=== PATIENT | female | born 1980 | race Caucasian/White ===

== ENCOUNTER 2025-02-10 19:15 | Emergency (ER) | payer BC, OTHER ==
[~2025-02-10] VITALS: Ht 167.6 cm; Wt 86.2 kg
--- NOTE | 2025-02-10 19:31 | NUR ---
UA CUP PROVIDED
[2025-02-10 20:17] LABS: IMMATURE GRANULOCYTE ABSOLUTE 0.12 K/uL (0-1); NUCLEATED RED BLOOD CELLS 0.0 % (0.0-0.19); PLATELET COUNT (AUTO) 198 K/uL (130-400); RED BLOOD CELL COUNT(AUTO) 4.84 MIL/uL (4.00-5.50); RED CELL DISTRIBUTION WIDTH 13.2 % (11.0-15.5); WHITE BLOOD COUNT (AUTO) 9.9 K/uL (4.8-10.8)
[2025-02-10 20:22] LABS: APPEARANCE,URINE CLEAR (CLEAR); GLUCOSE, URINE (UA) NEGATIVE (NEGATIVE); LEUKOCYTE ESTERASE ,URINE NEGATIVE Leu/uL (NEGATIVE); NITRATE,URINE NEGATIVE (NEGATIVE)
[2025-02-10 20:25] LABS: ADD UA MICROSCOPIC NO; OCCULT BLOOD,URINE NEGATIVE (NEGATIVE)
[2025-02-10 20:27] LABS: CREATININE 0.6 mg/dL (0.5-1.0); GLOMERULAR FILTR. RATE CALC 113.0 mL/min (>90); GLUCOSE,RANDOM 84.0 mg/dL (70-105); SODIUM SERUM 138.0 mmol/L (136-145); UREA NITROGEN, BLOOD 11.0 mg/dL (7-18)
--- NOTE | 2025-02-10 20:47 | ERN ---
ED Note History of Present Illness Stated Complaint: ABD PAIN WITH NAUSEA Chief Complaint: Abdominal Pain Time Seen by MD: 19:42 Dictation: This is a 44-year-old female who presented to the emergency room complaining of upper abdominal pain associated with nausea that started today. As the day progressed it was getting worse so she came into the ER for further evaluation. She denied any vomitings diarrhea hematemesis or melena. No history of any fever chills or rigors. Temperature 96.9 pulse 72 respirations 18 blood pressure 125/81 with a pulse oximetry of 99% on room air Patient reports having a history of pancreatitis-patient stated that they did not know why she developed pancreatitis. She stated that she only drank occasionally socially. But she did indicate that her triglycerides are high Allergies: Coded Allergies: No Known Allergies (Unverified Allergy, Unknown, 02/10/25) Past Medical History Past Medical History: Pancreatitis Surgical History: Cholecystectomy, Family History: Negative Social History: Negative RN Note Reviewed/Agreed w/PFSH: Yes Review of System Dictation Constitutional: Negative for fever,chills, and weight loss Eyes: Negative for injury, pain,redness, and discharge ENT: Negative for injury,pain or swelling Cardiovascular: Negative for chest pain, palpitations, and edema Respiratory: Negative for shortness of breath, cough, and wheezing, Abdomen/GI: Positive for upper abdominal pain, nausea, denied vomiting, diarrhea, and constipation Back: Negative for injury and pain : Negative for injury, bleeding and discharge MS/Extremity: Negative for injury and deformity Skin: Negative for rash, and discoloration Neuro: Negative for headache, weakness, numbness, tingling, and seizure Psych: Negative for suicide ideation, homicidal ideation, and hallucinations Initial Vital Sign VS Vital Signs Date Time Temp Pulse Resp B/P (MAP) Pulse Ox O2 Delivery O2 Flow Rate FiO2 02/10/25 19:29 97.0 72 18 125/81 99 Room Air Physical Exam Dictation General: awake, alert, NAD Head/Face: Normocephalic, atraumatic Eyes: PERRL, EOMI, vision at baseline ENT: oral cavity clear, TMs clear, no signs of infection Neck: Trachea midline, supple, no nuchal rigidity Cardiovascular: RRR, normal S1/S2, No MRGs, no JVD Respiratory: CTAB, no respiratory distress, No rales or wheezes Abdomen: Soft, non-tender, non-distended, normal bowel sounds, no guarding or rebound. Skin: Warm, dry, normal turgor, no rash MS/Extremity: Pulses equal, no cyanosis, neurovascular intact, FROM Neuro: COAx4, GCS 15, strength 5/5, CN 2-12 intact, normal cerebellar exam, normal gait, Psych: Normal behavior, mood, and affect normal Extremities-trace edema without any palpable cords, Homans sign is negative Results (Laboratory/Radiology) Laboratory/Radiology Laboratory Tests Test 02/10/25 19:46 White Blood Count 9.9 K/uL (4.8-10.8) Red Blood Count 4.84 MIL/uL (4.00-5.50) Hemoglobin 13.9 g/dL (12.0-16.0) Hematocrit 41.9 % (36-48) Mean Corpuscular Volume 86.6 fL (79-99) Mean Corpuscular Hemoglobin 28.7 pg (27.0-33.0) Mean Corpuscular Hemoglobin Concent 33.2 g/dL (32.0-36.0) Red Cell Distribution Width 13.2 % (11.0-15.5) Platelet Count 198 K/uL (130-400) Mean Platelet Volume 12.8 fL (7.5-10.5) H Immature Granulocyte % (Auto) 1.2 % (0-1) H Neutrophils (%) (Auto) 58.1 % (40.0-77.0) Lymphocytes (%) (Auto) 30.1 % (21.0-51.0) Monocytes (%) (Auto) 8.8 % (3.0-13.0) Eosinophils (%) (Auto) 1.5 % (0.0-8.0) Basophils (%) (Auto) 0.3 % (0.0-5.0) Neutrophils # (Auto) 5.7 K/uL (1.8-7.7) Lymphocytes # (Auto) 3.0 K/uL (1.0-4.8) Monocytes # (Auto) 0.9 K/uL (0.1-1.0) Eosinophils # (Auto) 0.15 K/uL (0.00-0.70) Basophils # (Auto) 0.03 K/uL (0.00-0.20) Absolute Immature Granulocyte (auto 0.12 K/uL (0-1) Nucleated Red Blood Cells 0.0 % (0.0-0.19) Urine Color COLORLESS (YELLOW) Urine Appearance CLEAR (CLEAR) Urine pH 5.5 (5.0-8.0) Urine Specific Goldsmith 1.007 (1.001-1.031) Urine Protein NEGATIVE mg/dL (NEGATIVE) Urine Glucose (UA) NEGATIVE mg/dL (NEGATIVE) Urine Ketones NEGATIVE mg/dL (NEGATIVE) Urine Occult Blood NEGATIVE (NEGATIVE) Urine Nitrate NEGATIVE (NEGATIVE) Urine Bilirubin NEGATIVE mg/dL (NEGATIVE) Urine Urobilinogen 0.2 mg/dL (0.2-1.0) Urine Leukocyte Esterase NEGATIVE Rafa/uL Sodium Level 138 mmol/L (136-145) Potassium Level 3.7 mmol/L (3.5-5.1) Chloride Level 102 mmol/L (101-111) Carbon Dioxide Level 28 mmol/L (21-32) Blood Urea Nitrogen 11 mg/dL (7-18) Creatinine 0.6 mg/dL (0.5-1.0) Glomerular Filtration Rate Calc 113 mL/min (>90) Random Glucose 84 mg/dL (70-105) Total Calcium 9.1 mg/dL (8.5-10.1) Total Bilirubin 0.4 mg/dL (0.2-1.0) Direct Bilirubin 0.1 mg/dL (0.0-0.3) Aspartate Amino Transf (AST/SGOT) 15 U/L (10-37) Alanine Aminotransferase (ALT/SGPT) 30 U/L (12-78) Alkaline Phosphatase 118 U/L (50-136) Total Protein 7.7 g/dL (6.0-8.3) Albumin 3.7 g/dL (3.5-5.0) Lipase 110 U/L (16-77) H Labs Reviewed?: Yes ED Course ED Course Orders Procedure Category Date Status Time Vital Signs Per CPOE 02/10/25 Transmitted Routine 19:41 Saline Lock Iv CPOE 02/10/25 Transmitted 19:41 Cbc With Differential LAB 02/10/25 Complete 19:41 Lipase LAB 02/10/25 Complete 19:41 Urinalysis Profile LAB 02/10/25 Complete 19:41 Basic Metabolic Panel LAB 02/10/25 Complete 19:41 Hepatic Function Panel LAB 02/10/25 Complete 20:42 Urinalysis Profile LAB 02/10/25 Transmitted 20:41 Lactated Ringers PHA 02/10/25 Complete 1000ml (Lactated 21:00 Ondansetron 4mg Inj PHA 02/10/25 Complete (Zofran 4mg Inj) 21:00 Famotidine 20mg Vial PHA 02/10/25 Complete (Pepcid 20mg Vial) 21:00 Current Medications Medications (Trade) Dose Ordered Sig/Trisha Route PRN Reason Start Time Stop Time Status Last Admin Dose Admin Famotidine (Pepcid 20mg Vial) 20 mg ONCE ONCE IV 02/10/25 21:00 02/10/25 21:01 DC 02/10/25 21:01 Lactated Ringer's 1,000 ml @ 0 mls/hr ONCE ONCE IV 02/10/25 21:00 02/10/25 21:01 DC 02/10/25 21:02 Ondansetron HCl (zoFRAN 4MG INJ) 4 mg ONCE ONCE IVP 02/10/25 21:00 02/10/25 21:01 DC 02/10/25 21:01 Vital Signs Date Time Temp Pulse Resp B/P (MAP) Pulse Ox O2 Delivery O2 Flow Rate FiO2 02/10/25 19:29 97.0 72 18 125/81 99 Room Air Medical Decision Making MDM Differential diagnosis: Gastritis, esophagitis, gastroesophageal reflux disease, acute cholecystitis, peptic ulcer disease, gastroenteritis, colitis, co nstipation, pancreatitis This is a 44-year-old female who presented to the emergency room complaining of upper abdominal pain associated with nausea that started today. As the day progressed it was getting worse so she came into the ER for further evaluation. She denied any vomitings diarrhea hematemesis or melena. No history of any fever chills or rigors. Temperature 96.9 pulse 72 respirations 18 blood pressure 125/81 with a pulse oximetry of 99% on room air Patient reports having a history of pancreatitis-patient stated that they did not know why she developed pancreatitis. She stated that she only drank occasionally socially. But she did indicate that her triglycerides are high 8:25 p.m.-CBC is with a normal limits BNP 7 pending 8:40 p.m. BNP 7 is with a normal limits LFTs are normal lipase is 110 Urinalysis is unremarkable Symptomatic management and consider discharge to follow up with her primary care physician I updated the patient on available labs and it is certainly likely she might have mild pancreatitis however she has no evidence of any inflammatory response and abdomen is extremely benign. I will be discharging her to home to follow up with her primary care physician and returned to the GI doctors. I also educated her that it is paramount to control her triglyceride levels. She verbalized full understanding Counseling on lifestyle modifications weight loss diet and exercise. Rationale: Tests considered and ordered secondary to shared decision making include: Labs Previous outside records reviewed: Old ER visits. Risk of complication and/or morbidity or mortality of patient management: None Medications-Per medication reconciliation Need for hospitalization: Patient does not meet criteria for hospitalization. Need for emergency major/minor surgery: No There are no social concerns with this patient. Prescription drug management Prescriptions will include symptomatic care Patient's prior external medical records from other ER visits were reviewed by me as indicated. Prior testing and results from previous visits were reviewed. Prior tests were taken into account with medical decision making and resource utilization, independent historian/historians were used to obtain complete medical history. I independently interpreted the test that were performed, results were reviewed by me and considered findings on radiology if ordered. Medical management and examination interpretation discussions were had by me with other qualified healthcare professionals as indicated for the patient's care. Problem List Problem List: (1) Upper abdominal pain (2) Pancreatitis DX & DISP Disposition: Discharge Departure Impression: Primary Impression: Pancreatitis Additional Impression: Upper abdominal pain Condition: Stable Additional Instructions: Patient and the caregiver have been informed of all the diagnostic tests and the imaging conducted during the today's visit to the emergency room and has verbalized understanding of the results I have personally reviewed and interpreted all diagnostic exams performed here in the ER today as well as the vital signs documented by the nursing staff. The patient is now being discharged to home and should follow up with the primary care physician or the specialist as directed by the ER staff. Referrals: SELF,REFERRAL (PCP) MCKINLEY GREENE MD Feb 10, 2025 20:47
[2025-02-10] MEDS: FAMOTIDINE 20MG VIAL IV ONE (21:01)
[2025-02-10] MEDS: LACTATED RINGERS 1000ML 1,000 ML IV ONE (21:02)
[2025-02-10 21:20] LABS: ASPARTATE AMINOTRANSFERASE 15.0 U/L (10-37); TOTAL PROTEIN, SERUM 7.7 g/dL (6.0-8.3)
[2025-02-10 22:38] VITALS: BP 122/79; PULSE 75; RESP 18; TEMP 98.3; O2SAT 99
== END 2025-02-10 22:38 | disposition home or self-care (01) ==
LOC: EDH 19:15
DX: K85.90 Acute pancreatitis without necrosis or infection, unspecified (principal); R10.10 Upper abdominal pain, unspecified; Z87.19 Personal history of other diseases of the digestive system; Z90.49 Acquired absence of other specified parts of digestive tract; Z98.890 Other specified postprocedural states
CPT/HCPCS: 99284; 96374; 96375; 80076; 80048; 83690; 85025; 81003; 36415; J7120; J1308; J2405